=== PATIENT | female | born 1965 | race African-American/Black ===

== ENCOUNTER 2020-03-15 09:54 | Outpatient (RCR) | payer BC ==
[~2020-03-15 09:54] MED LIST: ATORVASTATIN CA20 MG PO; LOSARTAN-HCTZ1 EAC1 PO; NAPROXEN250 MG PO; OMEPRAZOLE40 MG PO; TYLENOL325 MG PO
== END 2020-03-16 ==
LOC: PT 09:54
PROVIDERS: ATTEND Podiatrist Foot & Ankle Surgery
DX: M76.822 Posterior tibial tendinitis, left leg (principal); M66.372 Spontaneous rupture of flexor tendons, left ankle and foot; M62.81 Muscle weakness (generalized); M25.572 Pain in left ankle and joints of left foot; M25.672 Stiffness of left ankle, not elsewhere classified; R26.2 Difficulty in walking, not elsewhere classified
CPT/HCPCS: 97139

== ENCOUNTER 2020-04-15 10:00 | Outpatient (RCR) | payer BC | END 2020-04-16 | LOC: PT 10:00 | PROVIDERS: ATTEND Podiatrist Foot & Ankle Surgery | DX: M76.822 Posterior tibial tendinitis, left leg (principal) | CPT/HCPCS: 97139 ==

== ENCOUNTER 2020-05-06 10:00 | Outpatient (RCR) | payer BC | END 2020-05-16 | LOC: PT 10:00 | PROVIDERS: ATTEND Podiatrist Foot & Ankle Surgery | DX: M76.822 Posterior tibial tendinitis, left leg (principal); M66.372 Spontaneous rupture of flexor tendons, left ankle and foot; M25.572 Pain in left ankle and joints of left foot; M25.672 Stiffness of left ankle, not elsewhere classified; M62.81 Muscle weakness (generalized); R26.2 Difficulty in walking, not elsewhere classified ==

== ENCOUNTER 2020-05-24 09:59 | Outpatient (RCR) | payer BC | END 2020-06-16 | LOC: PT 09:59 | PROVIDERS: ATTEND Podiatrist Foot & Ankle Surgery | DX: M76.822 Posterior tibial tendinitis, left leg (principal) ==

== ENCOUNTER → 2020-10-04 | Outpatient (CLI) | payer OTHER ==
[~2020-10-04] MED LIST changes: +AMLODIPINE BESYL5 MG PO; +APPLE CIDER VI300 MG PO; +METFORMIN HCL500 MG PO; +VITAMIN B-1250 MC1 PO
[2020-10-04 08:47] LABS: ANION GAP 14.2 mmol/L (8-16); BLOOD UREA NITROGEN 12 mg/dL (7-26); BUN/CREATININE RATIO 16 (6-25); CALCIUM 9.2 mg/dL (8.4-10.2); CARBON DIOXIDE 30 mmol/L (22-29); CHLORIDE 100 mmol/L (98-107); CREATININE, SERUM 0.77 mg/dL (0.57-1.11); EST GLOMERULAR FILTRATION RATE > 60 ML/MIN (60-); GLUCOSE 169 mg/dL (74-118); POTASSIUM 3.2 mmol/L (3.5-5.1); SODIUM 141 mmol/L (136-145)
== END ==
LOC: DX 10:57 → EDSTATUS 11-01 06:30
PROVIDERS: ATTEND Podiatrist Foot & Ankle Surgery
DX: Z01.812 Encounter for preprocedural laboratory examination (principal); Z01.818 Encounter for other preprocedural examination; Z20.822 Contact with and (suspected) exposure to COVID-19; M76.822 Posterior tibial tendinitis, left leg; M19.072 Primary osteoarthritis, left ankle and foot
CPT/HCPCS: 36415; 71046; 80048; 93005; U0002

== ENCOUNTER → 2020-11-01 | Day surgery (SDC) | payer OTHER ==
[2020-10-28 10:07] LABS: ANION GAP 12.4 mmol/L (8-16); BLOOD UREA NITROGEN 11 mg/dL (7-26); BUN/CREATININE RATIO 14 (6-25); CALCIUM 9.9 mg/dL (8.4-10.2); CARBON DIOXIDE 32 mmol/L (22-29); CHLORIDE 100 mmol/L (98-107); CREATININE, SERUM 0.78 mg/dL (0.57-1.11); EST GLOMERULAR FILTRATION RATE > 60 ML/MIN (60-); GLUCOSE 104 mg/dL (74-118); POTASSIUM 3.4 mmol/L (3.5-5.1); SODIUM 141 mmol/L (136-145)
[~2020-11-01] MED LIST changes: +BUPIVACAINE HCL 0.5% INJ 30 ML VIAL INJ ONE; +DEXAMETHASONE SOD PHOS INJ 4 MG/ML VIAL ONE; +FENTANYL CITRATE/PF 100MCG/2 ML INJ ONE; +HYDROCODONE/APAP 5MG-325MG TAB ONE; +KETOROLAC TROMETHAMINE 30 MG/ML VIAL ONE; +LIDOCAINE HCL 2% LOCAL INJ 5 ML SDV VIAL INJ ONE; +MEPERIDINE HCL INJ 25 MG/ML VIAL ONE; +MIDAZOLAM HCL 2 MG/2 ML VIAL ONE; +ONDANSETRON HCL INJ 2MG/ML 2ML 2 MG/ML VIAL ONE; +POVIDONE IODINE 0.05% 0.05 % ML PO ONE; +PROPOFOL IV EMULSION 10 MG/ML 20 ML VIAL ONE; +SEVOFLURANE INHAL SOLN 250 ML PEN BTL ONE
[2020-11-01 10:25] VITALS: BP 139/83
== END | disposition home or self-care (01) ==
LOC: OR 05:16
PROVIDERS: ATTEND Podiatrist Foot & Ankle Surgery
DX: M76.822 Posterior tibial tendinitis, left leg (principal); M19.072 Primary osteoarthritis, left ankle and foot; Z88.2 Allergy status to sulfonamides; R73.03 Prediabetes; K21.9 Gastro-esophageal reflux disease without esophagitis; K44.9 Diaphragmatic hernia without obstruction or gangrene; K76.0 Fatty (change of) liver, not elsewhere classified; I10 Essential (primary) hypertension; E78.5 Hyperlipidemia, unspecified
CPT/HCPCS: 28730; 36415 ×2; 80048; 82948; J1100; J1885; J2001; J2175; J2250; J2405; J2704; J3010